=== PATIENT | male | born 1955 | race Two or more races ===

== ENCOUNTER 2020-06-01 14:32 | Outpatient (RCR) | payer MEDICARE, SELFPAY ==
[2020-06-22] MEDS: COVID-19 VACC, MRNA(PFIZER)/PF 30 MCG/0.3 ML SYRINGE IM (08:09)
== END 2020-08-24 23:59 ==
LOC: IMMUN 14:32
PROVIDERS: PCP Family Medicine; Referring Provider Family Medicine; Visit Provider Family Medicine
DX: Z23 Encounter for immunization (principal)
CPT/HCPCS: 0001A; 0002A; 91300

== ENCOUNTER → 2025-01-07 | Outpatient (CLI) | payer MEDICARE, OTHER, SELFPAY ==
--- OUTSIDE RECORDS SUMMARY | 2025-01-07 17:05 | XMS RPT_ITS | CCD ---
Author Organization [facility] Care Team Providers Care Doctor Of Podiatry Name Role Phone MIRLANDE VENEGASN-PURCHASING INTERN, DOMINICK Castañeda Primary Care Physi sera MIRLANDE VENEGASN-PURCHASING INTERN, DOMINICK Castañeda Primary Care Un available ARCHIE COLEY DO Attending Unavailable MIRLANDE ANGELES-ESHA, DOMINICK Castañeda Attending Un available MIRLANDE ANGELES-ESHA, DOMINICK Castañeda Primary Care Un available MIRLANDE ANGELES-ESHA, DOMINICK Castañeda Attending Un available MIRLANDE ANGELES-ESHA, DOMINICK Castañeda Primary Care Un available Allergies Allergy Classification Reported Allergen(s) Allergy Type Date of Onset Reaction(s) Facility (1 source) seasonal enviromental Allergy to substance Nasal congestion (finding), Sneezing (finding) [facility] NEGATED: Highlighted row has been ruled out! (1 source) Drug allergy [facility] Medications Current Medications Medication Drug Class(es) Dates Sig (Normalized) Sig (Original) aspirin 81 mg delayed release oral tablet (3 sources) Platelet Aggregation Inhibitor, Nonsteroidal Anti-inflammatory Drug Start: 04-09-2019 aspirin 81 mg oral delayed release tablet Dose : 81 mg = 1 tab(s), Oral, qDay, 0 Refill(s) Start Date: 04/09/19 Status: Ordered Centrum Silver oral tablet (3 sources) Start: 04-09-2019 take 1 tablet by mouth once daily Centrum Silver oral tablet Dose = 1 tab(s), Oral, qDay, 0 Refill(s) Start Date: 04/09/19 Status: Ordered Cholecalciferol (2 sources) Vitamin D Start: 11-08-2022 Vitamin D (3) 45 units oral capsule 0 Refill(s) Start Date: 11/08/22 Status: Ordered hydrocortisone 25 mg/ml topical cream (3 sources) Corticosteroid Start: 09-24-2019 hydrocortisone 2.5% topical cream Apply 1 ki, Topical, BID, # 30 gram(s), 2 Refill(s), [id number], 185.5, cm, 09/24/19 15:47:00 EDT, Height, 112.3, kg, 09/24/19 15:47:00 EDT, Dosing Weight Start Date: 09/24/19 Status: Ordered lisinopril 30 mg oral tablet (3 sources) Angiotensin Converting Enzyme Inhibitor Start: 06-29-2023 End: 06-23-2024 lisinopril 30 mg oral tablet Dose : 30 mg = 1 tab(s), Oral, qDay, # 90 tab(s), 3 Refill(s), [id number], Hypertension, 182.9, cm, 06/29/23 9:33:00 EDT, Height, kg, 06/29/23 9:33:00 EDT, Dosing Weight Start Date: 06/29/23 Stop Date: 06/23/24 Status: Ordered Start: 06-24-2022 End: 12-21-2022 lisinopril 30 mg oral tablet Dose : 30 mg = 1 tab(s), Oral, qDay, # 90 tab(s), 1 Refill(s), [id number], Hypertension, 182.9, cm, 05/31/22 10:59:00 EDT, Height, kg, 05/31/22 10:59:00 EDT, Dosing Weight Start Date: 06/24/22 Stop Date: 12/21/22 Status: Ordered Problems Problem Classification Problem Date Documented Da te Episodic/Chronic Essential hypertension (3 sources) Hypertensive disorder 11-14-2018 Chronic 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; 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 Unclassified (4 sources) Patient encounter status 06-29-2023 Results Test Name Value Interpretation Reference Range Facility .Auto Diffon 12-26-2023 Basophil, Absolute 0.1 10 3/mcL Normal 0.0-0.2 [facility] Comment on above: Performed By: #### A DIFF, GFR, ANEU, CBC, PSA, CMP, LIPID #### [address] [id number] Basophils/100 WBC (Bld) 0.7 % Normal 0.0-2.5 [facility] Comment on above: Performed By: #### A DIFF, GFR, ANEU, CBC, PSA, CMP, LIPID #### [address] [address] Eosinophil, Absolute 0.1 10 3/mcL Normal 0.0-0.7 [facility] Comment on above: Performed By: #### A DIFF, GFR, ANEU, CBC, PSA, CMP, LIPID #### [address] [address] Eosinophils/100 WBC (Bld) 1.1 % Normal 0.0-7.0 [facility] Comment on above: Performed By: #### A DIFF, GFR, ANEU, CBC, PSA, CMP, LIPID #### [address] [address] Lymphocyte, Absolute 2.3 10 3/mcL Normal 0.9-4.3 [facility] Comment on above: Performed By: #### A DIFF, GFR, ANEU, CBC, PSA, CMP, LIPID #### [address] [address] Lymphocytes/100 WBC (Bld) 28.9 % Normal 20.0-40.0 [facility] Comment on above: Performed By: #### A DIFF, GFR, ANEU, CBC, PSA, CMP, LIPID #### [address] [address] Monocyte, Absolute 0.7 10 3/mcL Normal 0.1-1.4 [facility] Comment on above: Performed By: #### A DIFF, GFR, ANEU, CBC, PSA, CMP, LIPID #### [address] [address] Monocytes/100 WBC (Bld) 9.1 % Normal 2.0-13.0 [facility] Comment on above: Performed By: #### A DIFF, GFR, ANEU, CBC, PSA, CMP, LIPID #### [address] [address] Neutrophils/100 WBC (Bld) 60.2 % Normal 50.0-75.0 [facility] Comment on above: Performed By: #### A DIFF, GFR, ANEU, CBC, PSA, CMP, LIPID #### [address] [address] .GFRon 12-26-2023 GFR 97 ml/min/1.73sqm Normal [facility] Comment on above: Result Comment: GFR Population mean for , Non- Americans Ages 20-29 = 116 mL/min/1.73 sq.m. Ages 30-39 = 107 mL/min/1.73 sq.m. Ages 40-49 = 99 mL/min/1.73 sq.m. Ages 50-59 = 93 mL/min/1.73 sq.m. Ages 60-69 = 85 mL/min/1.73 sq.m. Ages 70+ = 75 mL/min/1.73 sq.m. Chronic Kidney Disease: Less than 60 mL/min/1.73 square meters End Stage Renal Disease: Less than 15 mL/min/1.73 square meters Performed By: #### A DIFF, GFR, ANEU, CBC, PSA, CMP, LIPID #### [address] [address] GFR Non- 80 ml/min/1.73sqm Normal [facility] Comment on above: Result Comment: GFR Population mean for , Non- Americans Ages 20-29 = 116 mL/min/1.73 sq.m. Ages 30-39 = 107 mL/min/1.73 sq.m. Ages 40-49 = 99 mL/min/1.73 sq.m. Ages 50-59 = 93 mL/min/1.73 sq.m. Ages 60-69 = 85 mL/min/1.73 sq.m. Ages 70+ = 75 mL/min/1.73 sq.m. Chronic Kidney Disease: Less than 60 mL/min/1.73 square meters End Stage Renal Disease: Less than 15 mL/min/1.73 square meters Performed By: #### A DIFF, GFR, ANEU, CBC, PSA, CMP, LIPID #### [address] [address] .NEUABSon 12-26-2023 Neutrophil, Absolute 4.9 10 3/mcL Normal 2.3-8.1 [facility] Comment on above: Performed By: #### A DIFF, GFR, ANEU, CBC, PSA, CMP, LIPID #### [address] [id number] CBCon 12-26-2023 Erythrocyte distribution width (RBC) [Ratio] 13.7 % Normal 11.5-15.5 [facility] Comment on above: Performed By: #### A DIFF, GFR, ANEU, CBC, PSA, CMP, LIPID #### [address] [address] Hematocrit (Bld) [Volume fraction] 44.3 % Normal 40.0-52.0 [facility] Comment on above: Performed By: #### A DIFF, GFR, ANEU, CBC, PSA, CMP, LIPID #### [address] [address] Hgb 14.7 G/dL Normal 13.0-17.5 [facility] Comment on above: Performed By: #### A DIFF, GFR, ANEU, CBC, PSA, CMP, LIPID #### [address] [address] MCH (RBC) [Entitic mass] 30.9 pg Normal 27.0-33.0 [facility] Comment on above: Performed By: #### A DIFF, GFR, ANEU, CBC, PSA, CMP, LIPID #### [address] [address] MCHC 33.3 G/dL Normal 32.0-36.0 [facility] Comment on above: Performed By: #### A DIFF, GFR, ANEU, CBC, PSA, CMP, LIPID #### [address] [address] MCV (RBC) [Entitic vol] 92.8 fL Normal 81.0-100.0 [facility] Comment on above: Performed By: #### A DIFF, GFR, ANEU, CBC, PSA, CMP, LIPID #### [address] [address] Platelet 232 10 3/mcL Normal 150-450 [facility] Comment on above: Performed By: #### A DIFF, GFR, ANEU, CBC, PSA, CMP, LIPID #### [address] [address] Platelet mean volume (Bld) [Entitic vol] 7.7 fL Normal 6.4-10.5 [facility] Comment on above: Performed By: #### A DIFF, GFR, ANEU, CBC, PSA, CMP, LIPID #### [address] [address] RBC 4.78 10 6/mcL Normal 4.50-6.00 [facility] Comment on above: Performed By: #### A DIFF, GFR, ANEU, CBC, PSA, CMP, LIPID #### [address] [address] WBC 8.1 10 3/mcL Normal 4.5-10.8 [facility] Comment on above: Performed By: #### A DIFF, GFR, ANEU, CBC, PSA, CMP, LIPID #### [address] [address] CMPon 12-26-2023 Albumin Level 3.8 G/dL Normal 3.4-4.8 [facility] Comment on above: Performed By: #### A DIFF, GFR, ANEU, CBC, PSA, CMP, LIPID #### [address] [address] Albumin/Globulin [Mass ratio] 1.2 {ratio} Normal 1.1-2.5 [facility] Comment on above: Performed By: #### A DIFF, GFR, ANEU, CBC, PSA, CMP, LIPID #### [address] [address] ALP [Catalytic activity/Vol] 63 U/L Normal 40-135 [facility] Comment on above: Performed By: #### A DIFF, GFR, ANEU, CBC, PSA, CMP, LIPID #### [address] [address] ALT [Catalytic activity/Vol] 40 U/L Normal 16-63 [facility] Comment on above: Performed By: #### A DIFF, GFR, ANEU, CBC, PSA, CMP, LIPID #### [address] [address] AST [Catalytic activity/Vol] 17 U/L Normal 10-40 [facility] Comment on above: Performed By: #### A DIFF, GFR, ANEU, CBC, PSA, CMP, LIPID #### [address] [address] Bili Total 0.5 mg/dL Normal 0.2-1.0 [facility] Comment on above: Result Comment: Use of this assay is not recommended for patients undergoing treatment with eltrombopag due to the potential for falsely elevated results. Performed By: #### A DIFF, GFR, ANEU, CBC, PSA, CMP, LIPID #### [address] [address] BUN/Creatinine Ratio 22 ratio Normal 7-27 [facility] Comment on above: Performed By: #### A DIFF, GFR, ANEU, CBC, PSA, CMP, LIPID #### [address] [address] Calcium [Mass/Vol] 9.8 mg/dL Normal 8.4-10.2 [facility] Comment on above: Performed By: #### A DIFF, GFR, ANEU, CBC, PSA, CMP, LIPID #### [address] [address] Chloride [Moles/Vol] 103 mmol/L Normal 98-107 [facility] Comment on above: Performed By: #### A DIFF, GFR, ANEU, CBC, PSA, CMP, LIPID #### [address] [address] CO2 [Moles/Vol] 26 mmol/L Normal 23-31 [facility] Comment on above: Performed By: #### A DIFF, GFR, ANEU, CBC, PSA, CMP, LIPID #### [address] [address] Creatinine [Mass/Vol] 0.94 mg/dL Normal 0.70-1.30 [facility] Comment on above: Result Comment: Test ing performed on Siemens Dimension EXL analyzer using a modified kinetic Caron technique. Performed By: #### A DIFF, GFR, ANEU, CBC, PSA, CMP, LIPID #### [address] [address] Electrolyte Balance 9.0 mEq/L Normal 4.0-15.0 [facility] Comment on above: Performed By: #### A DIFF, GFR, ANEU, CBC, PSA, CMP, LIPID #### [address] [address] Globulin 3.1 G/dL Normal [facility] Comment on above: Performed By: #### A DIFF, GFR, ANEU, CBC, PSA, CMP, LIPID #### [address] [address] Glucose [Mass/Vol] 93 mg/dL Normal 80-115 [facility] Comment on above: Performed By: #### A DIFF, GFR, ANEU, CBC, PSA, CMP, LIPID #### [address] [address] Potassium [Moles/Vol] 4.1 mmol/L Normal 3.5-5.1 [facility] Comment on above: Performed By: #### A DIFF, GFR, ANEU, CBC, PSA, CMP, LIPID #### [address] [address] Sodium [Moles/Vol] 138 mmol/L Normal 136-145 [facility] Comment on above: Performed By: #### A DIFF, GFR, ANEU, CBC, PSA, CMP, LIPID #### [address] [address] Total Protein 6.9 G/dL Normal 6.4-8.2 [facility] Comment on above: Performed By: #### A DIFF, GFR, ANEU, CBC, PSA, CMP, LIPID #### [facility] [address] [place], [place] [address] Urea nitrogen [Mass/Vol] 21 mg/dL High 7-18 [facility] Comment on above: Performed By: #### A DIFF, GFR, ANEU, CBC, PSA, CMP, LIPID #### [facility] [address] [place], [place] [address] LABORATORYOrdered By: SYSTEM SYSTEM on 12-26-2023 Albumin BCP dye [Mass/Vol] 3.8 G/dL Normal 3.4 - 4.8 G/dL AO ADM SS Albumin/Globulin [Mass ratio] 1.2 {ratio} Normal 1.1 - 2.5 ratio AO ADM SS ALP [Catalytic activity/Vol] 63 U/L Normal 40 - 135 U/L AO ADM SS ALT With P-5'-P [Catalytic activity/Vol] 40 U/L Normal 16 - 63 U/L AO ADM SS AST With P-5'-P [Catalytic activity/Vol] 17 U/L Normal 10 - 40 U/L AO ADM SS Basophils (Bld) [#/Vol] 0.1 103/mcL Normal 0.0 - 0.2 10^3/mcL AO Workflow SS Basophils/100 WBC (Bld) 0.7 % Normal 0.0 - 2.5 % AO Workflow SS Bilirubin [Mass/Vol] 0.5 mg/dL Normal 0.2 - 1 .0 mg/dL AO ADM SS Comment on above: Interpretive Data: U se of this assay is not recommended for patients undergoing treatment with eltrombopag due to the potential for falsely elevated results. Calcium [Mass/Vol] 9.8 mg/dL Normal 8.4 - 10. 2 mg/dL AO ADM SS Chloride [Moles/Vol] 103 mmol/L Normal 98 - 10 7 mmol/L AO ADM SS CO2 [Moles/Vol] 26 mmol/L Normal 23 - 31 mmol/L AO ADM SS Creatinine [Mass/Vol] 0.94 mg/dL Normal 0.70 - 1.30 mg/dL AO ADM SS Comment on above: Interpretive Data: T esting performed on Siemens Dimension EXL analyzer using a modified kinetic Caron technique. Electrolyte Balance 9.0 mEq/L Normal 4.0 - 15 .0 mEq/L AO ADM SS Eosinophil, Absolute 0.1 103/mcL Normal 0.0 - 0 .7 10^3/mcL AO Workflow SS Eosinophils/100 WBC (Bld) 1.1 % Normal 0.0 - 7.0 % AO Workflow SS Erythrocyte distribution width (RBC) [Ratio] 13.7 % Normal 11.5 - 15.5 % AO Workflow SS GFR/1.73 sq M.predicted among blacks MDRD (S/P/Bld) [Vol rate/Area] 97 ml/min/1.73sqm Invalid Interpretation Code AO Chemistry S Comment on above: Interpretive Data: GFR Population mean for , Non- Americans Ages 20-29 = 116 mL/min/1.73 sq.m. Ages 30-39 = 107 mL/min/1.73 sq.m. Ages 40-49 = 99 mL/min/1.73 sq.m. Ages 50-59 = 93 mL/min/1.73 sq.m. Ages 60-69 = 85 mL/min/1.73 sq.m. Ages 70+ = 75 mL/min/1.73 sq.m. Chronic Kidney Disease: Less than 60 mL/min/1.73 square meters End Stage Renal Disease: Less than 15 mL/min/1.73 square meters GFR/1.73 sq M.predicted among non-blacks MDRD (S/P/Bld) [Vol rate/Area] 80 ml/min/1.73sqm Invalid Interpretation Code AO Chemistry S Comment on above: Interpretive Data: GFR Population mean for , Non- Americans Ages 20-29 = 116 mL/min/1.73 sq.m. Ages 30-39 = 107 mL/min/1.73 sq.m. Ages 40-49 = 99 mL/min/1.73 sq.m. Ages 50-59 = 93 mL/min/1.73 sq.m. Ages 60-69 = 85 mL/min/1.73 sq.m. Ages 70+ = 75 mL/min/1.73 sq.m. Chronic Kidney Disease: Less than 60 mL/min/1.73 square meters End Stage Renal Disease: Less than 15 mL/min/1.73 square meters Globulin 3.1 G/dL Invalid Interpretation Code AO ADM SS Glucose [Mass/Vol] 93 mg/dL Normal 80 - 115 mg/dL AO ADM SS Hematocrit (Bld) [Volume fraction] 44.3 % Normal 40.0 - 52.0 % AO Workflow SS Hemoglobin (Bld) [Mass/Vol] 14.7 G/dL Normal 13.0 - 17.5 G/dL AO Workflow SS Lymphocytes (Bld) [#/Vol] 2.3 103/mcL Normal 0.9 - 4.3 10^3/mcL AO Workflow SS Lymphocytes/100 WBC (Bld) 28.9 % Normal 20.0 - 40.0 % AO Workflow SS MCH (RBC) [Entitic mass] 30.9 pg Normal 27.0 - 33.0 pg AO Workflow SS MCHC 33.3 G/dL Normal 32.0 - 36.0 G/dL AO Workflow SS MCV (RBC) [Entitic vol] 92.8 fL Normal 81.0 - 100.0 fL AO Workflow SS Monocytes (Bld) [#/Vol] 0.7 103/mcL Normal 0.1 - 1.4 10^3/mcL AO Workflow SS Monocytes/100 WBC (Bld) 9.1 % Normal 2.0 - 13.0 % AO Workflow SS Neutrophils (Bld) [#/Vol] 4.9 103/mcL Normal 2.3 - 8.1 10^3/mcL AO Workflow SS Neutrophils/100 WBC (Bld) 60.2 % Normal 50.0 - 75.0 % AO Workflow SS Platelet mean volume (Bld) [Entitic vol] 7.7 fL Normal 6.4 - 10.5 fL AO Workflow SS Platelets (Bld) [#/Vol] 232 103/mcL Normal 150 - 450 10^3/mcL AO Workflow SS Potassium [Moles/Vol] 4.1 mmol/L Normal 3.5 - 5.1 mmol/L AO ADM SS Prostate specific Ag [Mass/Vol] 0.59 ng/mL Normal 0.00 - 4.00 ng/mL AO ADM SS Protein [Mass/Vol] 6.9 G/dL Normal 6.4 - 8.2 G/dL AO ADM SS RBC (Bld) [#/Vol] 4.78 106/mcL Normal 4.50 - 6.0 0 10^6/mcL AO Workflow SS Sodium [Moles/Vol] 138 mmol/L Normal 136 - 145 mmol/L AO ADM SS Urea nitrogen [Mass/Vol] 21 mg/dL High 7 - 18 mg/dL AO ADM SS Urea nitrogen/Creatinine [Mass ratio] 22 ratio Normal 7 - 27 ratio AO ADM SS WBC (Bld) [#/Vol] 8.1 103/mcL Normal 4.5 - 10.8 10^3/mcL AO Workflow SS LABORATORYOrdered By: Juliet Barone on 12-26-2023 Cholesterol [Mass/Vol] 225 mg/dL High 0 - 200 mg/dL AO ADM SS Comment on above: Interpretive Data: C holesterol Reference Interval: Less than 200 Desirable 200-239 Borderline high risk 240 and above High risk Cholesterol in HDL [Mass/Vol] 61 mg/dL High 40 - 60 mg/dL AO ADM SS Cholesterol in LDL [Mass/Vol] 122 mg/dL Normal 0 - 130 mg/dL AO ADM SS Triglyceride [Mass/Vol] 208 mg/dL High 0 - 150 mg/dL AO ADM SS Comment on above: Interpretive Data: T riglyceride Reference Interval: Less than 150 Normal 150-199 Borderline high risk 200-499 High risk 500 or higher Very high risk LIPIDon 12-26-2023 Cholesterol [Mass/Vol] 225 mg/dL High 0-200 [facility] Comment on above: Result Comment: Chol esterol Reference Interval: Less than 200 Desirable 200-239 Borderline high risk 240 and above High risk Performed By: #### A DIFF, GFR, ANEU, CBC, PSA, CMP, LIPID #### [id number] [place], [place] [address] Cholesterol in HDL [Mass/Vol] 61 mg/dL High 40-60 [facility] Comment on above: Performed By: #### A DIFF, GFR, ANEU, CBC, PSA, CMP, LIPID #### [id number] [place], [place] [address] Cholesterol in LDL [Mass/Vol] 122 mg/dL Normal 0-130 [facility] Comment on above: Performed By: #### A DIFF, GFR, ANEU, CBC, PSA, CMP, LIPID #### [id number] [place], [place] [address] Triglyceride [Mass/Vol] 208 mg/dL High 0-150 [facility] Comment on above: Result Comment: Trig lyceride Reference Interval: Less than 150 Normal 150-199 Borderline high risk 200-499 High risk 500 or higher Very high risk Performed By: #### A DIFF, GFR, ANEU, CBC, PSA, CMP, LIPID #### [address] [id number] PSAon 12-26-2023 Prostate Specific Antigen 0.59 ng/mL Normal 0.00-4.00 [facility] Comment on above: Performed By: #### A DIFF, GFR, ANEU, CBC, PSA, CMP, LIPID #### [address] [id number] .Auto Diffon 07-04-2023 Basophil, Absolute 0.0 10 3/mcL Normal 0.0-0.2 [facility] ([place]) Comment on above: Performed By: #### C MP, PSA, LIPID, GFR, ANEU, ADIFF, A1C, CBC #### [address] [address] Basophils/100 WBC (Bld) 0.6 % Normal 0.0-2.5 [facility] ([place]) Comment on above: Performed By: #### C MP, PSA, LIPID, GFR, ANEU, ADIFF, A1C, CBC #### [address] [address] Eosinophil, Absolute 0.2 10 3/mcL Normal 0.0-0.4 [facility] ([place]) Comment on above: Performed By: #### C MP, PSA, LIPID, GFR, ANEU, ADIFF, A1C, CBC #### [address] [address] Eosinophils/100 WBC (Bld) 2.4 % Normal 0.0-7.0 [facility] ([place]) Comment on above: Performed By: #### C MP, PSA, LIPID, GFR, ANEU, ADIFF, A1C, CBC #### [address] [address] Lymphocyte, Absolute 1.6 10 3/mcL Normal 0.8-3.9 [facility] ([place]) Comment on above: Performed By: #### C MP, PSA, LIPID, GFR, ANEU, ADIFF, A1C, CBC #### [address] [address] Lymphocytes/100 WBC (Bld) 21.9 % Normal 10.0-50.0 [facility] ([place]) Comment on above: Performed By: #### C MP, PSA, LIPID, GFR, ANEU, ADIFF, A1C, CBC #### [address] [address] Monocyte, Absolute 0.8 10 3/mcL Normal 0.2-1.0 [facility] ([place]) Comment on above: Performed By: #### C MP, PSA, LIPID, GFR, ANEU, ADIFF, A1C, CBC #### [address] [address] Monocytes/100 WBC (Bld) 11.2 % Normal 1.7-13.0 [facility] ([place]) Comment on above: Performed By: #### C MP, PSA, LIPID, GFR, ANEU, ADIFF, A1C, CBC #### [address] [address] Neutrophils/100 WBC (Bld) 63.9 % Normal 37.0-80.0 [facility] ([place]) Comment on above: Performed By: #### C MP, PSA, LIPID, GFR, ANEU, ADIFF, A1C, CBC #### [address] [address] .GFRon 07-04-2023 GFR 92 ml/min/1.73sqm Normal [facility] ([place]) Comment on above: Result Comment: GFR Population mean for , Non- Americans Ages 20-29 = 116 mL/min/1.73 sq.m. Ages 30-39 = 107 mL/min/1.73 sq.m. Ages 40-49 = 99 mL/min/1.73 sq.m. Ages 50-59 = 93 mL/min/1.73 sq.m. Ages 60-69 = 85 mL/min/1.73 sq.m. Ages 70+ = 75 mL/min/1.73 sq.m. Chronic Kidney Disease: Less than 60 mL/min/1.73 square meters End Stage Renal Disease: Less than 15 mL/min/1.73 square meters Performed By: #### C MP, PSA, LIPID, GFR, ANEU, ADIFF, A1C, CBC #### [address] [address] GFR Non- 76 ml/min/1.73sqm Normal [facility] ([place]) Comment on above: Result Comment: GFR Population mean for , Non- Americans Ages 20-29 = 116 mL/min/1.73 sq.m. Ages 30-39 = 107 mL/min/1.73 sq.m. Ages 40-49 = 99 mL/min/1.73 sq.m. Ages 50-59 = 93 mL/min/1.73 sq.m. Ages 60-69 = 85 mL/min/1.73 sq.m. Ages 70+ = 75 mL/min/1.73 sq.m. Chronic Kidney Disease: Less than 60 mL/min/1.73 square meters End Stage Renal Disease: Less than 15 mL/min/1.73 square meters Performed By: #### C MP, PSA, LIPID, GFR, ANEU, ADIFF, A1C, CBC #### [address] [address] .NEUABSon 07-04-2023 Neutrophil, Absolute 4.6 10 3/mcL Normal 2.9-6.2 [facility] ([place]) Comment on above: Performed By: #### C MP, PSA, LIPID, GFR, ANEU, ADIFF, A1C, CBC #### [address] [address] A1Con 07-04-2023 HbA1c (Bld) [Mass fraction] 5.3 % Normal 4.3-6.4 [facility] ([place]) Comment on above: Performed By: #### C MP, PSA, LIPID, GFR, ANEU, ADIFF, A1C, CBC #### [address] [address] CBCon 07-04-2023 Erythrocyte distribution width (RBC) [Ratio] 13.5 % Normal 11.5-14.5 [facility] ([place]) Comment on above: Performed By: #### C MP, PSA, LIPID, GFR, ANEU, ADIFF, A1C, CBC #### [address] [address] Hematocrit (Bld) [Volume fraction] 41.6 % Low 42.0-52.0 [facility] ([place]) Comment on above: Performed By: #### C MP, PSA, LIPID, GFR, ANEU, ADIFF, A1C, CBC #### [address] [address] Hgb 14.1 G/dL Normal 14.0-18.0 [facility] ([place]) Comment on above: Performed By: #### C MP, PSA, LIPID, GFR, ANEU, ADIFF, A1C, CBC #### [address] [address] MCH (RBC) [Entitic mass] 30.7 pg Normal 27.0-31.2 [facility] ([place]) Comment on above: Performed By: #### C MP, PSA, LIPID, GFR, ANEU, ADIFF, A1C, CBC #### [address] [address] MCHC 33.8 G/dL Normal 31.8-35.4 [facility] ([place]) Comment on above: Performed By: #### C MP, PSA, LIPID, GFR, ANEU, ADIFF, A1C, CBC #### [address] [address] MCV (RBC) [Entitic vol] 90.6 fL Normal 80.0-94.0 [facility] ([place]) Comment on above: Performed By: #### C MP, PSA, LIPID, GFR, ANEU, ADIFF, A1C, CBC #### [address] [address] Platelet 224 10 3/mcL Normal 130-400 [facility] ([place]) Comment on above: Performed By: #### C MP, PSA, LIPID, GFR, ANEU, ADIFF, A1C, CBC #### [address] [address] Platelet mean volume (Bld) [Entitic vol] 8.3 fL Normal 7.4-10.4 [facility] ([place]) Comment on above: Performed By: #### C MP, PSA, LIPID, GFR, ANEU, ADIFF, A1C, CBC #### [address] [address] RBC 4.59 10 6/mcL Normal 4.04-6.13 [facility] ([place]) Comment on above: Performed By: #### C MP, PSA, LIPID, GFR, ANEU, ADIFF, A1C, CBC #### [address] [address] WBC 7.2 10 3/mcL Normal 4.6-10.8 [facility] ([place]) Comment on above: Performed By: #### C MP, PSA, LIPID, GFR, ANEU, ADIFF, A1C, CBC #### [address] [address] CMPon 07-04-2023 Albumin Level 3.5 G/dL Normal 3.4-4.8 [facility] ([place]) Comment on above: Performed By: #### C MP, PSA, LIPID, GFR, ANEU, ADIFF, A1C, CBC #### [address] [id number] Albumin/Globulin [Mass ratio] 1.1 {ratio} Normal 1.1-2.5 [facility]) Comment on above: Performed By: #### C MP, PSA, LIPID, GFR, ANEU, ADIFF, A1C, CBC #### [address] [address] ALP [Catalytic activity/Vol] 66 U/L Normal 40-135 [facility] ([place]) Comment on above: Performed By: #### C MP, PSA, LIPID, GFR, ANEU, ADIFF, A1C, CBC #### [address] [address] ALT [Catalytic activity/Vol] 31 U/L Normal 16-63 [facility] ([place]) Comment on above: Performed By: #### C MP, PSA, LIPID, GFR, ANEU, ADIFF, A1C, CBC #### [address] [address] AST [Catalytic activity/Vol] 13 U/L Normal 10-40 [facility] ([place]) Comment on above: Performed By: #### C MP, PSA, LIPID, GFR, ANEU, ADIFF, A1C, CBC #### [address] [address] Bili Total 0.4 mg/dL Normal 0.2-1.0 [facility] ([place]) Comment on above: Result Comment: Use of this assay is not recommended for patients undergoing treatment with eltrombopag due to the potential for falsely elevated results. Performed By: #### C MP, PSA, LIPID, GFR, ANEU, ADIFF, A1C, CBC #### [address] [address] BUN/Creatinine Ratio 16 ratio Normal 7-27 [facility] ([place]) Comment on above: Performed By: #### C MP, PSA, LIPID, GFR, ANEU, ADIFF, A1C, CBC #### [address] [address] Calcium [Mass/Vol] 8.9 mg/dL Normal 8.4-10.2 [facility] ([place]) Comment on above: Performed By: #### C MP, PSA, LIPID, GFR, ANEU, ADIFF, A1C, CBC #### [address] [address] Chloride [Moles/Vol] 105 mmol/L Normal 98-107 [facility] ([place]) Comment on above: Performed By: #### C MP, PSA, LIPID, GFR, ANEU, ADIFF, A1C, CBC #### [address] [address] CO2 [Moles/Vol] 28 mmol/L Normal 23-31 [facility] ([place]) Comment on above: Performed By: #### C MP, PSA, LIPID, GFR, ANEU, ADIFF, A1C, CBC #### [address] [address] Creatinine [Mass/Vol] 0.99 mg/dL Normal 0.70-1.30 [facility] ([place]) Comment on above: Performed By: #### C MP, PSA, LIPID, GFR, ANEU, ADIFF, A1C, CBC #### [address] [address] Electrolyte Balance 10.0 mEq/L Normal 4.0-15.0 [facility] ([place]) Comment on above: Performed By: #### C MP, PSA, LIPID, GFR, ANEU, ADIFF, A1C, CBC #### [address] [address] Globulin 3.1 G/dL Normal [facility] ([place]) Comment on above: Performed By: #### C MP, PSA, LIPID, GFR, ANEU, ADIFF, A1C, CBC #### [address] [address] Glucose [Mass/Vol] 94 mg/dL Normal 80-115 [facility] ([place]) Comment on above: Performed By: #### C MP, PSA, LIPID, GFR, ANEU, ADIFF, A1C, CBC #### [address] [address] Potassium [Moles/Vol] 4.7 mmol/L Normal 3.5-5.1 [facility] ([place]) Comment on above: Performed By: #### C MP, PSA, LIPID, GFR, ANEU, ADIFF, A1C, CBC #### [address] [address] Sodium [Moles/Vol] 143 mmol/L Normal 136-145 [facility] ([place]) Comment on above: Performed By: #### C MP, PSA, LIPID, GFR, ANEU, ADIFF, A1C, CBC #### [address] [address] Total Protein 6.6 G/dL Normal 6.4-8.2 [facility] ([place]) Comment on above: Performed By: #### C MP, PSA, LIPID, GFR, ANEU, ADIFF, A1C, CBC #### [id number] [place], [place] [address] Urea nitrogen [Mass/Vol] 16 mg/dL Normal 7-18 [facility] ([place]) Comment on above: Performed By: #### C MP, PSA, LIPID, GFR, ANEU, ADIFF, A1C, CBC #### [id number] [place], [place] [address] LABORATORYOrdered By: SYSTEM SYSTEM on 07-04-2023 Albumin BCP dye [Mass/Vol] 3.5 G/dL Normal 3.4 - 4.8 G/dL AO ADM SS Albumin/Globulin [Mass ratio] 1.1 {ratio} Normal 1.1 - 2.5 ratio AO ADM SS ALP [Catalytic activity/Vol] 66 U/L Normal 40 - 135 U/L AO ADM SS ALT With P-5'-P [Catalytic activity/Vol] 31 U/L Normal 16 - 63 U/L AO ADM SS AST With P-5'-P [Catalytic activity/Vol] 13 U/L Normal 10 - 40 U/L AO ADM SS Basophil, Absolute 0.0 103/mcL Normal 0.0 - 0.2 10^3/mcL AO Workflow SS Basophils/100 WBC (Bld) 0.6 % Normal 0.0 - 2.5 % AO Workflow SS Bilirubin [Mass/Vol] 0.4 mg/dL Normal 0.2 - 1 .0 mg/dL AO ADM SS Comment on above: Interpretive Data: U se of this assay is not recommended for patients undergoing treatment with eltrombopag due to the potential for falsely elevated results. Calcium [Mass/Vol] 8.9 mg/dL Normal 8.4 - 10. 2 mg/dL AO ADM SS Chloride [Moles/Vol] 105 mmol/L Normal 98 - 10 7 mmol/L AO ADM SS CO2 [Moles/Vol] 28 mmol/L Normal 23 - 31 mmol/L AO ADM SS Creatinine [Mass/Vol] 0.99 mg/dL Normal 0.70 - 1.30 mg/dL AO ADM SS Electrolyte Balance 10.0 mEq/L Normal 4.0 - 15 .0 mEq/L AO ADM SS Eosinophil, Absolute 0.2 103/mcL Normal 0.0 - 0 .4 10^3/mcL AO Workflow SS Eosinophils/100 WBC (Bld) 2.4 % Normal 0.0 - 7.0 % AO Workflow SS Erythrocyte distribution width (RBC) [Ratio] 13.5 % Normal 11.5 - 14.5 % AO Workflow SS GFR/1.73 sq M.predicted among blacks MDRD (S/P/Bld) [Vol rate/Area] 92 ml/min/1.73sqm Invalid Interpretation Code AO Chemistry S Comment on above: Interpretive Data: GFR Population mean for , Non- Americans Ages 20-29 = 116 mL/min/1.73 sq.m. Ages 30-39 = 107 mL/min/1.73 sq.m. Ages 40-49 = 99 mL/min/1.73 sq.m. Ages 50-59 = 93 mL/min/1.73 sq.m. Ages 60-69 = 85 mL/min/1.73 sq.m. Ages 70+ = 75 mL/min/1.73 sq.m. Chronic Kidney Disease: Less than 60 mL/min/1.73 square meters End Stage Renal Disease: Less than 15 mL/min/1.73 square meters GFR/1.73 sq M.predicted among non-blacks MDRD (S/P/Bld) [Vol rate/Area] 76 ml/min/1.73sqm Invalid Interpretation Code AO Chemistry S Comment on above: Interpretive Data: GFR Population mean for , Non- Americans Ages 20-29 = 116 mL/min/1.73 sq.m. Ages 30-39 = 107 mL/min/1.73 sq.m. Ages 40-49 = 99 mL/min/1.73 sq.m. Ages 50-59 = 93 mL/min/1.73 sq.m. Ages 60-69 = 85 mL/min/1.73 sq.m. Ages 70+ = 75 mL/min/1.73 sq.m. Chronic Kidney Disease: Less than 60 mL/min/1.73 square meters End Stage Renal Disease: Less than 15 mL/min/1.73 square meters Globulin 3.1 G/dL Invalid Interpretation Code AO ADM SS Glucose [Mass/Vol] 94 mg/dL Normal 80 - 115 mg/dL AO ADM SS HbA1c (Bld) [Mass fraction] 5.3 % Normal 4.3 - 6.4 % AO ADM SS Hematocrit (Bld) [Volume fraction] 41.6 % Low 42.0 - 52.0 % AO Workflow SS Hemoglobin (Bld) [Mass/Vol] 14.1 G/dL Normal 14.0 - 18.0 G/dL AO Workflow SS Lymphocyte, Absolute 1.6 103/mcL Normal 0.8 - 3 .9 10^3/mcL AO Workflow SS Lymphocytes/100 WBC (Bld) 21.9 % Normal 10.0 - 50.0 % AO Workflow SS MCH (RBC) [Entitic mass] 30.7 pg Normal 27.0 - 31.2 pg AO Workflow SS MCHC 33.8 G/dL Normal 31.8 - 35.4 G/dL AO Workflow SS MCV (RBC) [Entitic vol] 90.6 fL Normal 80.0 - 94.0 fL AO Workflow SS Monocyte, Absolute 0.8 103/mcL Normal 0.2 - 1.0 10^3/mcL AO Workflow SS Monocytes/100 WBC (Bld) 11.2 % Normal 1.7 - 13.0 % AO Workflow SS Neutrophil, Absolute 4.6 103/mcL Normal 2.9 - 6 .2 10^3/mcL AO Workflow SS Neutrophils/100 WBC (Bld) 63.9 % Normal 37.0 - 80.0 % AO Workflow SS Platelet mean volume (Bld) [Entitic vol] 8.3 fL Normal 7.4 - 10.4 fL AO Workflow SS Platelets (Bld) [#/Vol] 224 103/mcL Normal 130 - 400 10^3/mcL AO Workflow SS Potassium [Moles/Vol] 4.7 mmol/L Normal 3.5 - 5.1 mmol/L AO ADM SS Prostate specific Ag [Mass/Vol] 0.59 ng/mL Normal 0.00 - 4.00 ng/mL AO ADM SS Protein [Mass/Vol] 6.6 G/dL Normal 6.4 - 8.2 G/dL AO ADM SS RBC (Bld) [#/Vol] 4.59 106/mcL Normal 4.04 - 6.1 3 10^6/mcL AO Workflow SS Sodium [Moles/Vol] 143 mmol/L Normal 136 - 145 mmol/L AO ADM SS Urea nitrogen [Mass/Vol] 16 mg/dL Normal 7 - 18 mg/dL AO ADM SS Urea nitrogen/Creatinine [Mass ratio] 16 ratio Normal 7 - 27 ratio AO ADM SS WBC (Bld) [#/Vol] 7.2 103/mcL Normal 4.6 - 10.8 10^3/mcL AO Workflow SS LABORATORYOrdered By: Tamia Barr on 07-04-2023 Cholesterol [Mass/Vol] 196 mg/dL Normal 0 - 200 mg/dL AO ADM SS Comment on above: Interpretive Data: C holesterol Reference Interval: Less than 200 Desirable 200-239 Borderline high risk 240 and above High risk Cholesterol in HDL [Mass/Vol] 55 mg/dL Normal 40 - 60 mg/dL AO ADM SS Cholesterol in LDL [Mass/Vol] 118 mg/dL Normal 0 - 130 mg/dL AO ADM SS Triglyceride [Mass/Vol] 115 mg/dL Normal 0 - 150 mg/dL AO ADM SS Comment on above: Interpretive Data: T riglyceride Reference Interval: Less than 150 Normal 150-199 Borderline high risk 200-499 High risk 500 or higher Very high risk LIPIDon 07-04-2023 Cholesterol [Mass/Vol] 196 mg/dL Normal 0-200 [facility] ([place]) Comment on above: Result Comment: Chol esterol Reference Interval: Less than 200 Desirable 200-239 Borderline high risk 240 and above High risk Performed By: #### C MP, PSA, LIPID, GFR, ANEU, ADIFF, A1C, CBC #### [address] [address] Cholesterol in HDL [Mass/Vol] 55 mg/dL Normal 40-60 [facility] ([place]) Comment on above: Performed By: #### C MP, PSA, LIPID, GFR, ANEU, ADIFF, A1C, CBC #### [address] [address] Cholesterol in LDL [Mass/Vol] 118 mg/dL Normal 0-130 [facility] ([place]) Comment on above: Performed By: #### C MP, PSA, LIPID, GFR, ANEU, ADIFF, A1C, CBC #### [address] [address] Triglyceride [Mass/Vol] 115 mg/dL Normal 0-150 [facility] ([place]) Comment on above: Result Comment: Trig lyceride Reference Interval: Less than 150 Normal 150-199 Borderline high risk 200-499 High risk 500 or higher Very high risk Performed By: #### C MP, PSA, LIPID, GFR, ANEU, ADIFF, A1C, CBC #### [id number] [place], [place] [address] PSAon 07-04-2023 Prostate Specific Antigen 0.59 ng/mL Normal 0.00-4.00 [facility] ([place]) Comment on above: Performed By: #### C MP, PSA, LIPID, GFR, ANEU, ADIFF, A1C, CBC #### [id number] [place], [place] [address] Vital Signs Date Time Vital Sign Value Performing Clinician Brooklynn marie 09-04-2022 18:02-0400 Blood Pressure Cuff Size ARCHIE POSTVARUN DO [facility] 09-04-2022 18:02-0400 Blood Pressure Location ARCHIE SINCEREVARUN DO [facility] 09-04-2022 18:02-0400 Blood Pressure Method ARCHIE SINCEREVARUN DO [facility] 09-04-2022 18:02-0400 Body height 182.9 cm ARCHIEAMINA COLEY DO [facility] 09-04-2022 18:02-0400 Body temperature 99.68 [degF] ARCHIEAMINA COLEY DO [facility] 09-04-2022 18:02-0400 Body weight 103.8 kg ARCHIEAMINA COLEY DO [facility] 09-04-2022 18:02-0400 Diastolic Blood Pressure Non-Invasive 83 1 ARCHIE POSTVARUN DO [facility] 09-04-2022 18:02-0400 Heart rate 85 /min ARCHIE POSTKA DO [facility] 09-04-2022 18:02-0400 Respiratory rate 16 /min ARCHIE COLEY DO [facility] 09-04-2022 18:02-0400 Systolic Blood Pressure Non-Invasive 157 1 ARCHIE COLEY DO [facility] Encounters Encounter Date Encounter Type Care Provider Facility Start: 12-26-2023 End: 12-26-2023 ambulatory DOMINICK NOGUEIRA APRN-PURCHASING INTERN Facility:[facility] Start: 12-26-2023 End: 12-26-2023 Patient encounter procedure DOMINICK NOGUEIRA APRN-PURCHASING INTERN [facility] Start: 07-04-2023 End: 07-05-2023 ambulatory DOMINICK NOGUEIRA APRN-PURCHASING INTERN Facility: Start: 07-04-2023 End: 07-04-2023 Patient encounter procedure DOMINICK NOGUEIRA APRN-PURCHASING INTERN [facility] Start: 09-04-2022 End: 09-04-2022 Emergency department patient visit DOMINICK NOGUEIRA APRN-PURCHASING INTERN Facility:[facility] Start: 09-04-2022 End: 09-04-2022 Emergency department patient visit ARCHIE POSTVARUN DO [facility] Procedures Date Procedure Procedure Detail Performing Clinician Start: 11-17-2016 Glaucoma screening FREDO COLEY DO Comment on above: Dr. Reyes Start: 11-17-2016 Ophthalmic examinati on and evaluation ARCHIE COLEY DO Comment on above: Dr. 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 INTERN [facility] 12-19-2022 SARS-CoV-2 (COVID-19 ) [id number] DOMINICK NOGUEIRA HARDWARE DEVELOPER-PURCHASING INTERN [facility] 12-27-2021 influenza virus vacc ine, unspecified formulation ARCHIE COLEY DO [facility] 02-03-2021 influenza, injectabl e, quadrivalent, contains preservative; Translations: [Fluarix PF Quadrivalent ] ARCHIE COLEY DO [facility] 01-20-2021 COVID-19, mRNA, LNP- S, PF, 30 mcg/0.3 mL dose; Translations: [[employer] COVID-19 Vaccine] ARCHIE COLEY DO [facility] 06-22-2020 SARS-CoV-2 mRNA (tozinameran) vaccine ARCHIE COLEY DO [facility] 06-01-2020 SARS-CoV-2 mRNA (tozinameran) vaccine ARCHIE COLEY DO [facility] Comment on above: Result Comment: 2020: [id number] 12-03-2019 influenza virus vacc ine, unspecified formulation ARCHIE COLEY DO [facility] 12-23-2018 influenza virus vacc ine, unspecified formulation ARCHIE DURESKA DO [facility] 12-18-2017 influenza virus vacc ine, unspecified formulation ARCHIE DURESKA DO [facility] 01-19-2017 influenza virus vacc ine, unspecified formulation ARCHIE OZUNAESKA DO [facility] 12-20-2016 influenza virus vacc ine, unspecified formulation ARCHIE OZUNAESKA DO [facility] 01-17-2015 influenza virus vacc ine, unspecified formulation ARCHIE OZUNAESKA DO [facility] Payers Date Payer Category Payer Medicare [id number] 2022 Self-pay 1955 Unknown [id number] 1955 Unknown [id number] 1955 Unknown [id number] Social History Date Type Detail Facility Start: 09-24-2019 Tobacco smoking status Ex-smoker (fi nding) [facility] Sex Assigned At Sex [facility] Evaluation + Plan note Note Date & Type Note Facility Evaluation + Plan note No data available for this section [facility] Hospital Discharge instructions Note Date & Type Note Facility Hospital Discharge instructions No data available for this section [facility] Progress note Note Date & Type Note Facility Progress note No data available for this section [facility] Summary Purpose Family History No Family History Records Found Advance Directives No Advanced Directives Records FoundNo Advanced Directives Records Found Additional Source Comments Patient Care team informatio n (unrecognized section and content) Care Team Personnel Name: DOMINICK NOGUEIRA Position: P4 [employer] Member Role: Primary Care Physician Address: Address: [address] [place] [address] Care Team Related Persons Name: RILEY MARRERO Care Team Personnel Name: DOMINICK NOGUEIRA Position: [employer] Member Role: Primary Care Physician Address: Address: [facility] [address] Name: Christina Cuevas RN Position: [facility] Member Role: Palliative Care Team Related Persons Name: RILEY MARRERO Care Team Personnel Name: DOMINICK NOGUEIRA Position: [employer] Member Role: Primary Care Physician Address: Address: [address] [place] [address] Name: Christina Cuevas RN Position: [facility] Member Role: Palliative Care Team Related Persons Name: RILEY MARRERO (unrecognized sect ion and content) No Status Records FoundNo Status Records Found INFORMATION SOURCE (unrecogn ized section and content) DATE CREATED AUTHOR 07/05/2023 [facility] ([place]) DATE CREATED AUTHOR AUTHOR'S ORGANIZ ATION 12/28/2023 [facility] FOR RECORDS PERTAINING TO PATIENTS WHO ARE OR HAVE BEEN ENROLLED IN A CHEMICAL DEPENDENCY/SUBSTANCEABUSE PROGRAM, SOME INFORMATION MAY BE OMITTED. This clinical summary was aggregated from multiple sources. Caution should be exercised in using it in the provision of clinical care. This summary normalizes information from multiple sources, and as a consequence, information in this document may materially change the coding, format and clinical context of patient data. In addition, data may be omitted in some cases. CLINICAL DECISIONS SHOULD BE BASED ON THE PRIMARY CLINICAL RECORDS. [facility]. provides no warranty or guarantee of the accuracy or completeness of information in this document.
--- OUTSIDE RECORDS SUMMARY | 2025-01-07 17:05 | XMS RPT_ITS | CCD ---
Author Organization [facility] Care Team Providers Care Muck Miner Name Role Phone MIRLANDE VENEGASN-FINISHER FINE DIAMOND DIES, DOMINICK Castañeda Primary Care Physi sera MIRLANDE VENEGASN-FINISHER FINE DIAMOND DIES, DOMINICK Castañeda Primary Care Un available ARCHIE [...] to substance Nasal congestion (finding), Sneezing (finding) [facility] NEGATED: Highlighted row has been ruled out! (1 source) Drug allergy [facility] Medications Current Medications Medication Drug Class(es) Dates [...] BID, # 30 gram(s), 2 Refill(s), [id number], 185.5, cm, 09/24/19 15:47:00 EDT, Height, 112.3, kg, 09/24/19 15:47:00 EDT, Dosing Weight Start Date: 09/24/19 Status: Ordered lisinopril 30 mg oral tablet (3 sources) Angiotensin Converting Enzyme Inhibitor Start: 06-29-2023 End: 06-23-2024 lisinopril 30 mg oral tablet Dose : 30 mg = 1 tab(s), Oral, qDay, # 90 tab(s), 3 Refill(s), [id number], Hypertension, 182.9, cm, 06/29/23 9:33:00 EDT, Height, kg, 06/29/23 9:33:00 EDT, Dosing Weight Start Date: 06/29/23 Stop Date: 06/23/24 Status: Ordered Start: 06-24-2022 End: 12-21-2022 lisinopril 30 mg oral tablet Dose : 30 mg = 1 tab(s), Oral, qDay, # 90 tab(s), 1 Refill(s), [id number], Hypertension, 182.9, cm, 05/31/22 10:59:00 [...] Basophil, Absolute 0.1 10 3/mcL Normal 0.0-0.2 [facility] Comment on above: Performed By: #### A DIFF, GFR, ANEU, CBC, PSA, CMP, LIPID #### [address] [address] Basophils/100 WBC (Bld) 0.7 % Normal 0.0-2.5 [facility] Comment on above: Performed By: #### A DIFF, GFR, ANEU, CBC, PSA, CMP, LIPID #### [address] [address] Eosinophil, Absolute 0.1 10 3/mcL Normal 0.0-0.7 [facility] Comment on above: Performed By: #### A DIFF, GFR, ANEU, CBC, PSA, CMP, LIPID #### [address] [address] Eosinophils/100 WBC (Bld) 1.1 % Normal 0.0-7.0 [facility] Comment on above: Performed By: #### A DIFF, GFR, ANEU, CBC, PSA, CMP, LIPID #### [address] [address] Lymphocyte, Absolute 2.3 10 3/mcL Normal 0.9-4.3 [facility] Comment on above: Performed By: #### A DIFF, GFR, ANEU, CBC, PSA, CMP, LIPID #### [address] [address] Lymphocytes/100 WBC (Bld) 28.9 % Normal 20.0-40.0 [facility] Comment on above: Performed By: #### A DIFF, GFR, ANEU, CBC, PSA, CMP, LIPID #### [address] [address] Monocyte, Absolute 0.7 10 3/mcL Normal 0.1-1.4 [facility] Comment on above: Performed By: #### A DIFF, GFR, ANEU, CBC, PSA, CMP, LIPID #### [address] [address] Monocytes/100 WBC (Bld) 9.1 % Normal 2.0-13.0 [facility] Comment on above: Performed By: #### A DIFF, GFR, ANEU, CBC, PSA, CMP, LIPID #### [address] [address] Neutrophils/100 WBC (Bld) 60.2 % Normal 50.0-75.0 [facility] Comment on above: Performed By: #### A DIFF, GFR, ANEU, CBC, PSA, CMP, LIPID #### [address] [address] .GFRon 12-26-2023 GFR 97 ml/min/1.73sqm Normal [facility] Comment on above: Result Comment: GFR Population [...] GFR, ANEU, CBC, PSA, CMP, LIPID #### [address] [address] GFR Non- 80 ml/min/1.73sqm Normal [facility] Comment on above: Result Comment: GFR Population [...] GFR, ANEU, CBC, PSA, CMP, LIPID #### [address] [address] .NEUABSon 12-26-2023 Neutrophil, Absolute 4.9 10 3/mcL Normal 2.3-8.1 [facility] Comment on above: Performed By: #### A DIFF, GFR, ANEU, CBC, PSA, CMP, LIPID #### [address] [address] CBCon 12-26-2023 Erythrocyte distribution width (RBC) [Ratio] 13.7 % Normal 11.5-15.5 [facility] Comment on above: Performed By: #### A DIFF, GFR, ANEU, CBC, PSA, CMP, LIPID #### [address] [address] Hematocrit (Bld) [Volume fraction] 44.3 % Normal 40.0-52.0 [facility] Comment on above: Performed By: #### A DIFF, GFR, ANEU, CBC, PSA, CMP, LIPID #### [address] [address] Hgb 14.7 G/dL Normal 13.0-17.5 [facility] Comment on above: Performed By: #### A DIFF, GFR, ANEU, CBC, PSA, CMP, LIPID #### [address] [address] MCH (RBC) [Entitic mass] 30.9 pg Normal 27.0-33.0 [facility] Comment on above: Performed By: #### A DIFF, GFR, ANEU, CBC, PSA, CMP, LIPID #### [address] [address] MCHC 33.3 G/dL Normal 32.0-36.0 [facility] Comment on above: Performed By: #### A DIFF, GFR, ANEU, CBC, PSA, CMP, LIPID #### [address] [address] MCV (RBC) [Entitic vol] 92.8 fL Normal 81.0-100.0 [facility] Comment on above: Performed By: #### A DIFF, GFR, ANEU, CBC, PSA, CMP, LIPID #### [address] [address] Platelet 232 10 3/mcL Normal 150-450 [facility] Comment on above: Performed By: #### A DIFF, GFR, ANEU, CBC, PSA, CMP, LIPID #### [address] [address] Platelet mean volume (Bld) [Entitic vol] 7.7 fL Normal 6.4-10.5 [facility] Comment on above: Performed By: #### A DIFF, GFR, ANEU, CBC, PSA, CMP, LIPID #### [address] [address] RBC 4.78 10 6/mcL Normal 4.50-6.00 [facility] Comment on above: Performed By: #### A DIFF, GFR, ANEU, CBC, PSA, CMP, LIPID #### [address] [address] WBC 8.1 10 3/mcL Normal 4.5-10.8 [facility] Comment on above: Performed By: #### A DIFF, GFR, ANEU, CBC, PSA, CMP, LIPID #### [address] [address] CMPon 12-26-2023 Albumin Level 3.8 G/dL Normal 3.4-4.8 [facility] Comment on above: Performed By: #### A DIFF, GFR, ANEU, CBC, PSA, CMP, LIPID #### [address] [address] Albumin/Globulin [Mass ratio] 1.2 {ratio} Normal 1.1-2.5 [facility] Comment on above: Performed By: #### A DIFF, GFR, ANEU, CBC, PSA, CMP, LIPID #### [address] [address] ALP [Catalytic activity/Vol] 63 U/L Normal 40-135 [facility] Comment on above: Performed By: #### A DIFF, GFR, ANEU, CBC, PSA, CMP, LIPID #### [address] [address] ALT [Catalytic activity/Vol] 40 U/L Normal 16-63 [facility] Comment on above: Performed By: #### A DIFF, GFR, ANEU, CBC, PSA, CMP, LIPID #### [address] [address] AST [Catalytic activity/Vol] 17 U/L Normal 10-40 [facility] Comment on above: Performed By: #### A DIFF, GFR, ANEU, CBC, PSA, CMP, LIPID #### [address] [address] Bili Total 0.5 mg/dL Normal 0.2-1.0 [facility] Comment on above: Result Comment: Use of this assay is not recommended for patients undergoing treatment with eltrombopag due to the potential for falsely elevated results. Performed By: #### A DIFF, GFR, ANEU, CBC, PSA, CMP, LIPID #### [address] [address] BUN/Creatinine Ratio 22 ratio Normal 7-27 [facility] Comment on above: Performed By: #### A DIFF, GFR, ANEU, CBC, PSA, CMP, LIPID #### [address] [address] Calcium [Mass/Vol] 9.8 mg/dL Normal 8.4-10.2 [facility] Comment on above: Performed By: #### A DIFF, GFR, ANEU, CBC, PSA, CMP, LIPID #### [address] [address] Chloride [Moles/Vol] 103 mmol/L Normal 98-107 [facility] Comment on above: Performed By: #### A DIFF, GFR, ANEU, CBC, PSA, CMP, LIPID #### [address] [address] CO2 [Moles/Vol] 26 mmol/L Normal 23-31 [facility] Comment on above: Performed By: #### A DIFF, GFR, ANEU, CBC, PSA, CMP, LIPID #### [address] [address] Creatinine [Mass/Vol] 0.94 mg/dL Normal 0.70-1.30 [facility] Comment on above: Result Comment: Test ing performed on Siemens Dimension EXL analyzer using a modified kinetic Caron technique. Performed By: #### A DIFF, GFR, ANEU, CBC, PSA, CMP, LIPID #### [address] [address] Electrolyte Balance 9.0 mEq/L Normal 4.0-15.0 [facility] Comment on above: Performed By: #### A DIFF, GFR, ANEU, CBC, PSA, CMP, LIPID #### [address] [address] Globulin 3.1 G/dL Normal [facility] Comment on above: Performed By: #### A DIFF, GFR, ANEU, CBC, PSA, CMP, LIPID #### [address] [address] Glucose [Mass/Vol] 93 mg/dL Normal 80-115 [facility] Comment on above: Performed By: #### A DIFF, GFR, ANEU, CBC, PSA, CMP, LIPID #### [address] [address] Potassium [Moles/Vol] 4.1 mmol/L Normal 3.5-5.1 [facility] Comment on above: Performed By: #### A DIFF, GFR, ANEU, CBC, PSA, CMP, LIPID #### [address] [address] Sodium [Moles/Vol] 138 mmol/L Normal 136-145 [facility] Comment on above: Performed By: #### A DIFF, GFR, ANEU, CBC, PSA, CMP, LIPID #### [address] [address] Total Protein 6.9 G/dL Normal 6.4-8.2 [facility] Comment on above: Performed By: #### A DIFF, GFR, ANEU, CBC, PSA, CMP, LIPID #### [facility] [address] [place], [place] [address] Urea nitrogen [Mass/Vol] 21 mg/dL High 7-18 [facility] Comment on above: Performed By: #### A DIFF, GFR, ANEU, CBC, PSA, CMP, LIPID #### [facility] [address] [place], [place] [address] LABORATORYOrdered By: SYSTEM SYSTEM on 12-26-2023 Albumin [...] 12-26-2023 Cholesterol [Mass/Vol] 225 mg/dL High 0-200 [facility] Comment on above: Result Comment: Chol esterol Reference Interval: Less than 200 Desirable 200-239 Borderline high risk 240 and above High risk Performed By: #### A DIFF, GFR, ANEU, CBC, PSA, CMP, LIPID #### [address] [place], [place] [address] Cholesterol in HDL [Mass/Vol] 61 mg/dL High 40-60 [facility] Comment on above: Performed By: #### A DIFF, GFR, ANEU, CBC, PSA, CMP, LIPID #### [address] [place], [place] [address] Cholesterol in LDL [Mass/Vol] 122 mg/dL Normal 0-130 [facility] Comment on above: Performed By: #### A DIFF, GFR, ANEU, CBC, PSA, CMP, LIPID #### [address] [place], [place] [address] Triglyceride [Mass/Vol] 208 mg/dL High 0-150 [facility] Comment on above: Result Comment: Trig lyceride Reference Interval: Less than 150 Normal 150-199 Borderline high risk 200-499 High risk 500 or higher Very high risk Performed By: #### A DIFF, GFR, ANEU, CBC, PSA, CMP, LIPID #### [address] [address] PSAon 12-26-2023 Prostate Specific Antigen 0.59 ng/mL Normal 0.00-4.00 [facility] Comment on above: Performed By: #### A DIFF, GFR, ANEU, CBC, PSA, CMP, LIPID #### [address] [address] .Auto Diffon 07-04-2023 Basophil, Absolute 0.0 10 3/mcL Normal 0.0-0.2 [facility] ([place]) Comment on above: Performed By: #### C MP, PSA, LIPID, GFR, ANEU, ADIFF, A1C, CBC #### [address] [address] Basophils/100 WBC (Bld) 0.6 % Normal 0.0-2.5 [facility] ([place]) Comment on above: Performed By: #### C MP, PSA, LIPID, GFR, ANEU, ADIFF, A1C, CBC #### [address] [address] Eosinophil, Absolute 0.2 10 3/mcL Normal 0.0-0.4 [facility] ([place]) Comment on above: Performed By: #### C MP, PSA, LIPID, GFR, ANEU, ADIFF, A1C, CBC #### [address] [address] Eosinophils/100 WBC (Bld) 2.4 % Normal 0.0-7.0 [facility] ([place]) Comment on above: Performed By: #### C MP, PSA, LIPID, GFR, ANEU, ADIFF, A1C, CBC #### [address] [address] Lymphocyte, Absolute 1.6 10 3/mcL Normal 0.8-3.9 [facility] ([place]) Comment on above: Performed By: #### C MP, PSA, LIPID, GFR, ANEU, ADIFF, A1C, CBC #### [address] [address] Lymphocytes/100 WBC (Bld) 21.9 % Normal 10.0-50.0 [facility] ([place]) Comment on above: Performed By: #### C MP, PSA, LIPID, GFR, ANEU, ADIFF, A1C, CBC #### [address] [address] Monocyte, Absolute 0.8 10 3/mcL Normal 0.2-1.0 [facility] ([place]) Comment on above: Performed By: #### C MP, PSA, LIPID, GFR, ANEU, ADIFF, A1C, CBC #### [address] [address] Monocytes/100 WBC (Bld) 11.2 % Normal 1.7-13.0 [facility] ([place] Comment on above: Performed By: #### C MP, PSA, LIPID, GFR, ANEU, ADIFF, A1C, CBC #### [address] [address] Neutrophils/100 WBC (Bld) 63.9 % Normal 37.0-80.0 [facility] ([place]) Comment on above: Performed By: #### C MP, PSA, LIPID, GFR, ANEU, ADIFF, A1C, CBC #### [address] [address] .GFRon 07-04-2023 GFR 92 ml/min/1.73sqm Normal [facility] ([place]) Comment on above: Result Comment: GFR Population [...] LIPID, GFR, ANEU, ADIFF, A1C, CBC #### [address] [address] GFR Non- 76 ml/min/1.73sqm Normal [facility] ([place]) Comment on above: Result Comment: GFR Population [...] LIPID, GFR, ANEU, ADIFF, A1C, CBC #### [address] [address] .NEUABSon 07-04-2023 Neutrophil, Absolute 4.6 10 3/mcL Normal 2.9-6.2 [facility] ([place]) Comment on above: Performed By: #### C MP, PSA, LIPID, GFR, ANEU, ADIFF, A1C, CBC #### [address] [address] A1Con 07-04-2023 HbA1c (Bld) [Mass fraction] 5.3 % Normal 4.3-6.4 [facility] ([place]) Comment on above: Performed By: #### C MP, PSA, LIPID, GFR, ANEU, ADIFF, A1C, CBC #### [address] [address] CBCon 07-04-2023 Erythrocyte distribution width (RBC) [Ratio] 13.5 % Normal 11.5-14.5 [facility] ([place]) Comment on above: Performed By: #### C MP, PSA, LIPID, GFR, ANEU, ADIFF, A1C, CBC #### [address] [address] Hematocrit (Bld) [Volume fraction] 41.6 % Low 42.0-52.0 [facility] ([place] Comment on above: Performed By: #### C MP, PSA, LIPID, GFR, ANEU, ADIFF, A1C, CBC #### [address] [address] Hgb 14.1 G/dL Normal 14.0-18.0 [facility] ([place]) Comment on above: Performed By: #### C MP, PSA, LIPID, GFR, ANEU, ADIFF, A1C, CBC #### [address] [address] MCH (RBC) [Entitic mass] 30.7 pg Normal 27.0-31.2 [facility] ([place] Comment on above: Performed By: #### C MP, PSA, LIPID, GFR, ANEU, ADIFF, A1C, CBC #### [address] [address] MCHC 33.8 G/dL Normal 31.8-35.4 [facility] ([place] Comment on above: Performed By: #### C MP, PSA, LIPID, GFR, ANEU, ADIFF, A1C, CBC #### [address] [address] MCV (RBC) [Entitic vol] 90.6 fL Normal 80.0-94.0 [facility] ([place] Comment on above: Performed By: #### C MP, PSA, LIPID, GFR, ANEU, ADIFF, A1C, CBC #### [address] [address] Platelet 224 10 3/mcL Normal 130-400 [facility] ([place]) Comment on above: Performed By: #### C MP, PSA, LIPID, GFR, ANEU, ADIFF, A1C, CBC #### [address] [address] Platelet mean volume (Bld) [Entitic vol] 8.3 fL Normal 7.4-10.4 [facility] ([place]) Comment on above: Performed By: #### C MP, PSA, LIPID, GFR, ANEU, ADIFF, A1C, CBC #### [address] [address] RBC 4.59 10 6/mcL Normal 4.04-6.13 [facility] ([place]) Comment on above: Performed By: #### C MP, PSA, LIPID, GFR, ANEU, ADIFF, A1C, CBC #### [address] [address] WBC 7.2 10 3/mcL Normal 4.6-10.8 [facility] ([place]) Comment on above: Performed By: #### C MP, PSA, LIPID, GFR, ANEU, ADIFF, A1C, CBC #### [address] [address] CMPon 07-04-2023 Albumin Level 3.5 G/dL Normal 3.4-4.8 [facility] ([place]) Comment on above: Performed By: #### C MP, PSA, LIPID, GFR, ANEU, ADIFF, A1C, CBC #### [address] [address] Albumin/Globulin [Mass ratio] 1.1 {ratio} Normal 1.1-2.5 [facility]) Comment on above: Performed By: #### C MP, PSA, LIPID, GFR, ANEU, ADIFF, A1C, CBC #### [address] [address] ALP [Catalytic activity/Vol] 66 U/L Normal 40-135 [facility] ([place] Comment on above: Performed By: #### C MP, PSA, LIPID, GFR, ANEU, ADIFF, A1C, CBC #### [address] [address] ALT [Catalytic activity/Vol] 31 U/L Normal 16-63 [facility] ([place] Comment on above: Performed By: #### C MP, PSA, LIPID, GFR, ANEU, ADIFF, A1C, CBC #### [address] [address] AST [Catalytic activity/Vol] 13 U/L Normal 10-40 [facility] ([place]) Comment on above: Performed By: #### C MP, PSA, LIPID, GFR, ANEU, ADIFF, A1C, CBC #### [address] [address] Bili Total 0.4 mg/dL Normal 0.2-1.0 [facility] ([place]) Comment on above: Result Comment: Use of this assay is not recommended for patients undergoing treatment with eltrombopag due to the potential for falsely elevated results. Performed By: #### C MP, PSA, LIPID, GFR, ANEU, ADIFF, A1C, CBC #### [address] [address] BUN/Creatinine Ratio 16 ratio Normal 7-27 [facility] ([place]) Comment on above: Performed By: #### C MP, PSA, LIPID, GFR, ANEU, ADIFF, A1C, CBC #### [address] [address] Calcium [Mass/Vol] 8.9 mg/dL Normal 8.4-10.2 [facility] ([place]) Comment on above: Performed By: #### C MP, PSA, LIPID, GFR, ANEU, ADIFF, A1C, CBC #### [address] [address] Chloride [Moles/Vol] 105 mmol/L Normal 98-107 [facility] ([place]) Comment on above: Performed By: #### C MP, PSA, LIPID, GFR, ANEU, ADIFF, A1C, CBC #### [address] [address] CO2 [Moles/Vol] 28 mmol/L Normal 23-31 [facility] ([place]) Comment on above: Performed By: #### C MP, PSA, LIPID, GFR, ANEU, ADIFF, A1C, CBC #### [address] [address] Creatinine [Mass/Vol] 0.99 mg/dL Normal 0.70-1.30 [facility] ([place]) Comment on above: Performed By: #### C MP, PSA, LIPID, GFR, ANEU, ADIFF, A1C, CBC #### [address] [address] Electrolyte Balance 10.0 mEq/L Normal 4.0-15.0 [facility] ([place]) Comment on above: Performed By: #### C MP, PSA, LIPID, GFR, ANEU, ADIFF, A1C, CBC #### [address] [address] Globulin 3.1 G/dL Normal [facility] ([place]) Comment on above: Performed By: #### C MP, PSA, LIPID, GFR, ANEU, ADIFF, A1C, CBC #### [address] [address] Glucose [Mass/Vol] 94 mg/dL Normal 80-115 [facility] ([place]) Comment on above: Performed By: #### C MP, PSA, LIPID, GFR, ANEU, ADIFF, A1C, CBC #### [address] [address] Potassium [Moles/Vol] 4.7 mmol/L Normal 3.5-5.1 [facility] ([place]) Comment on above: Performed By: #### C MP, PSA, LIPID, GFR, ANEU, ADIFF, A1C, CBC #### [address] [address] Sodium [Moles/Vol] 143 mmol/L Normal 136-145 [facility] ([place]) Comment on above: Performed By: #### C MP, PSA, LIPID, GFR, ANEU, ADIFF, A1C, CBC #### [address] [address] Total Protein 6.6 G/dL Normal 6.4-8.2 [facility] ([place]) Comment on above: Performed By: #### C MP, PSA, LIPID, GFR, ANEU, ADIFF, A1C, CBC #### [place] [place], [place] [address] Urea nitrogen [Mass/Vol] 16 mg/dL Normal 7-18 [facility] ([place]) Comment on above: Performed By: #### C MP, PSA, LIPID, GFR, ANEU, ADIFF, A1C, CBC #### [place] [address] [place], [place] [address] LABORATORYOrdered By: SYSTEM SYSTEM on 07-04-2023 Albumin [...] 07-04-2023 Cholesterol [Mass/Vol] 196 mg/dL Normal 0-200 [facility] ([place]) Comment on above: Result Comment: Chol esterol Reference Interval: Less than 200 Desirable 200-239 Borderline high risk 240 and above High risk Performed By: #### C MP, PSA, LIPID, GFR, ANEU, ADIFF, A1C, CBC #### [address] [address] Cholesterol in HDL [Mass/Vol] 55 mg/dL Normal 40-60 [facility] ([place]) Comment on above: Performed By: #### C MP, PSA, LIPID, GFR, ANEU, ADIFF, A1C, CBC #### [address] [address] Cholesterol in LDL [Mass/Vol] 118 mg/dL Normal 0-130 [facility] ([place]) Comment on above: Performed By: #### C MP, PSA, LIPID, GFR, ANEU, ADIFF, A1C, CBC #### [address] [address] Triglyceride [Mass/Vol] 115 mg/dL Normal 0-150 [facility] ([place]) Comment on above: Result Comment: Trig lyceride Reference Interval: Less than 150 Normal 150-199 Borderline high risk 200-499 High risk 500 or higher Very high risk Performed By: #### C MP, PSA, LIPID, GFR, ANEU, ADIFF, A1C, CBC #### [address] [place], [place] [address] PSAon 07-04-2023 Prostate Specific Antigen 0.59 ng/mL Normal 0.00-4.00 [facility] ([place]) Comment on above: Performed By: #### C MP, PSA, LIPID, GFR, ANEU, ADIFF, A1C, CBC #### [address] [place], [place] [address] Vital Signs Date Time Vital Sign Value Performing Clinician Brooklynn marie 09-04-2022 18:02-0400 Blood Pressure Cuff Size ARCHIE POSTVARUN DO [facility] 09-04-2022 18:02-0400 Blood Pressure Location ARCHIE SINCEREVARUN DO [facility] 09-04-2022 18:02-0400 Blood Pressure Method ARCHIE SINCEREVARUN DO [facility] 09-04-2022 18:02-0400 Body height 182.9 cm ARCHIEAMINA COLEY DO [facility] 09-04-2022 18:02-0400 Body temperature 99.68 [degF] ARCHIEAMINA COLEY DO [facility] 09-04-2022 18:02-0400 Body weight 103.8 kg ARCHIEAMINA COLEY DO [facility] 09-04-2022 18:02-0400 Diastolic Blood Pressure Non-Invasive 83 1 ARCHIE POSTVARUN DO [facility] 09-04-2022 18:02-0400 Heart rate 85 /min ARCHIE POSTKA DO [facility] 09-04-2022 18:02-0400 Respiratory rate 16 /min ARCHIE COLEY DO [facility] 09-04-2022 18:02-0400 Systolic Blood Pressure Non-Invasive 157 1 ARCHIE COLEY DO [facility] Encounters Encounter Date Encounter Type Care Provider Facility Start: 12-26-2023 End: 12-26-2023 ambulatory DOMINICK NOGUEIRA APRN-FINISHER [employer]IES Facility:[facility] Start: 12-26-2023 End: 12-26-2023 Patient encounter procedure DOMINICK NOGUEIRA APRN-FINISHER [employer] DIES [facility] Start: 07-04-2023 End: 07-05-2023 ambulatory DOMINICK NOGUEIRA APRN-FINISHER [employer] Facility: Start: 07-04-2023 End: 07-04-2023 Patient encounter procedure DOMINICK NOGUEIRA APRN-FINISHER [employer] [facility] Start: 09-04-2022 End: 09-04-2022 Emergency department patient visit DOMINICK NOGUEIRA APRN-FINISHER [employer] Facility:[facility] Start: 09-04-2022 End: 09-04-2022 Emergency department patient visit ARCHIE POSTVARUN DO [facility] Procedures Date Procedure Procedure Detail Performing Clinician Start: 11-17-2016 Glaucoma screening FREDO OCLEY DO Comment on above: Dr. Reyes Start: 11-17-2016 Ophthalmic examinati on and evaluation ARCHIE COLEY DO Comment on above: Dr. Reyes Craniotomy ARCHIE COLEY D O Comment on above: benign brain tumor a t age 6, metal plate Immunizations Immunization Date Immunization Notes Care Provider Fa cili 06-29-2023 Pneumococcal conjuga te PCV20, polysaccharide [id number] conjugate, adjuvant, PF; Translations: [Prevnar 20] DOMINICK NOGUEIRA APRN-FINISHER [employer] DIES [facility] 01-23-2023 RSV vaccine preF3, recombinant DOMINICK NOGUEIRA ASSISTANT DIRECTOR OF [employer]-FINISHER [employer] [facility] 01-09-2023 influenza virus vacc ine, unspecified formulation DOMINICK NOGUEIRA ASSISTANT DIRECTOR [employer]-FINISHER [employer] [facility] 12-19-2022 SARS-CoV-2 (COVID-19 ) [id number] DOMINICK NOGUEIRA ASSISTANT DIRECTOR OF [employer]-FINISHER [employer] [facility] 12-27-2021 influenza virus vacc ine, unspecified formulation ARCHIE COLEY DO [facility] 02-03-2021 influenza, injectabl e, quadrivalent, contains preservative; Translations: [Fluarix PF Quadrivalent ] ARCIHE COLEY DO [facility] 01-20-2021 COVID-19, mRNA, LNP- S, PF, 30 mcg/0.3 mL dose; Translations: [ShipBob COVID-19 Vaccine] ARCHIE COLEY DO [facility] 06-22-2020 SARS-CoV-2 mRNA (tozinameran) vaccine ARCHIE COLEY DO [facility] 06-01-2020 SARS-CoV-2 mRNA (tozinameran) vaccine ARCHIE COLEY DO [facility] Comment on above: Result Comment: 2020: [id number] 12-03-2019 influenza virus vacc ine, unspecified formulation ARCHIE COLEY DO [facility] 12-23-2018 influenza virus vacc ine, unspecified formulation ARCHIE DURESKA DO [facility] 12-18-2017 influenza virus vacc ine, unspecified formulation ARCHIE DURESKA DO [facility] 01-19-2017 influenza virus vacc ine, unspecified formulation ARCHIE OZUNAESKA DO [facility] 12-20-2016 influenza virus vacc ine, unspecified formulation ARCHIE OZUNAESKA DO [facility] 01-17-2015 influenza virus vacc ine, unspecified formulation ARCHIE OZUNAESKA DO [facility] Payers Date Payer Category Payer Medicare [id number] 2022 Self-pay 1955 Unknown [id number] 1955 Unknown [id number] 1955 Unknown [id number] Social History Date Type Detail Facility Start: 09-24-2019 Tobacco smoking status Ex-smoker (fi nding) [facility] Sex Assigned At [facility] Evaluation + Plan note Note Date & Type Note Facility Evaluation + Plan note No data available for this section [facility] Hospital Discharge instructions Note Date & Type Note Facility Hospital Discharge instructions No data available for this section [facility] Progress note Note Date & Type Note Facility Progress note No data available for this section [facility] Summary Purpose Family History No Family History Records Found Advance Directives No Advanced Directives Records FoundNo Advanced Directives Records Found Additional Source Comments Patient Care team informatio n (unrecognized section and content) Care Team Personnel Name: DOMINICK NOGUEIRA Position: [facility] [employer] Member Role: Primary Care Physician Address: Address: [address] [place] [address] Care Team Related Persons Name: RILEY MARRERO Care Team Personnel Name: DOMINICK NOGUEIRA Position: [facility] [employer] Member Role: Primary Care Physician Address: Address: [facility] [address] Name: Christina Cuevas RN Position: [facility] Member Role: Palliative Care Team Related Persons Name: RILEY MARRERO Care Team Personnel Name: DOMINICK NOGUEIRA Position: [facility] [employer] Member Role: Primary Care Physician Address: Address: [address] [place] [address] Name: Christina Cuevas RN Position: [facility] Member Role: Palliative Care Team Related Persons Name: RILEY MARRERO (unrecognized sect ion and content) No Status Records FoundNo Status Records Found INFORMATION SOURCE (unrecogn ized section and content) DATE CREATED AUTHOR 07/05/2023 [facility] ([place]) DATE CREATED AUTHOR AUTHOR'S ORGANIZ ATION 12/28/2023 [facility] FOR RECORDS PERTAINING TO PATIENTS WHO ARE [...] BE BASED ON THE PRIMARY CLINICAL RECORDS. [employer] [facility]. provides no warranty or guarantee of the accuracy or completeness of information in this document.
[2025-01-07 18:35] LABS: Hematocrit 43.6 % (40-54); Hemoglobin 14.5 g/dL (13.0-16.5); Immature Granulocytes Count 0.060 X10^3/uL (0.0-0.0); Mean Corp Hgb Conc 33.3 g/dL (32-36); Mean Corpuscular Volume 91.8 fL (80-94); Mean Platelet Vol. 10.0 fl (6.2-12.0); NRBC Flagged by Analyzer 0 % (0-5); Platelet Count 263 K/mm3 (150-450); RBC Distribution Width CV 13.4 % (11.6-14.6); RBC Distribution Width SD 45.8 fl (35.1-43.9); Red Blood Count 4.75 M/mm3 (4.6-6.2); White Blood Count 8.0 K/mm3 (4.4-11.0)
[2025-01-07 18:50] LABS: AST(SGOT) 16 U/L (<=37); Alanine Aminotransfer ALT/SGPT 20 U/L (<=46); Albumin, Serum 4.1 g/dL (3.4-4.8); Alkaline Phosphatase 63 U/L (40-129); Anion Gap 13 (5-15); BUN 17 mg/dL (4-19); BUN/Creat Ratio 18.2 RATIO (10-20); Calcium,Total 10.4 mg/dL (7.6-11.0); Carbon Dioxide 22.2 mmol/L (21.0-32.0); Chloride 105 mmol/L (98-108); Cholesterol 205 mg/dL (<=200); Globulin 3.2 g/dL (2.2-4.2); Glucose 102 mg/dL (70-99); Low Density Lipoprotein Calc. 108 mg/dL; Magnesium 2.0 mg/dL (1.5-2.2); Potassium 4.2 mmol/L (3.3-5.1); Triglycerides 207 mg/dL; Very Low Density Lipoprotein 41 mg/dL (5-40); Vitamin B12 469 pg/mL (180-914); Vitamin D,25 Hydroxy 41.7 ng/mL (30-100); cholesterol:hdl ratio screen 3.34
== END | disposition home or self-care (01) ==
LOC: MFPLAB 15:59
PROVIDERS: PCP Family Medicine; Visit Provider Family Medicine
DX: I10 Essential (primary) hypertension (principal)
CPT/HCPCS: 36415; 80053; 80061; 82306; 82607; 83735; 84443; 85025